=== PATIENT | female | born 1995 | race Two or more races ===

== ENCOUNTER 2020-03-10 08:54 | Outpatient (CLI) | payer SELFPAY | END 2020-03-10 12:46 | disposition home or self-care (01) | LOC: LDRP 08:54 → UNDOADMOB 08:54 → OB 08:54 → UNDODISOB 12:46 → OB 12:46 → EDSTATUS 03-24 08:07 | PROVIDERS: ATTEND Specialist | DX: O47.02 False labor before 37 completed weeks of gestation, second trimester (principal); Z3A.20 20 weeks gestation of pregnancy | CPT/HCPCS: 76805; G0378 ==

== ENCOUNTER 2020-06-30 17:09 | Observation (INO) | payer MEDICAID ==
[~2020-06-30] VITALS: Ht 152.4 cm; Wt 80.7 kg
== END 2020-06-30 18:05 | disposition home or self-care (01) ==
LOC: LDRP 17:09 → UNDOADMOB 17:09 → UNDODISOB 18:05
PROVIDERS: ADMIT Obstetrics & Gynecology; ATTEND Obstetrics & Gynecology
DX: O36.63X0 Maternal care for excessive fetal growth, third trimester, not applicable or unspecified (principal); Z3A.36 36 weeks gestation of pregnancy
CPT/HCPCS: 59025; 81002; G0378

== ENCOUNTER 2020-07-05 13:57 | Observation (INO) | payer MEDICAID ==
[2020-07-05] MEDS ORDERED: PREN-96 PO (16:14)
== END 2020-07-05 16:40 | disposition home or self-care (01) ==
LOC: OB 13:57 → LDRP 15:43
PROVIDERS: ADMIT Obstetrics & Gynecology; ATTEND Obstetrics & Gynecology
DX: O36.63X0 Maternal care for excessive fetal growth, third trimester, not applicable or unspecified (principal); O62.9 Abnormality of forces of labor, unspecified; Z3A.37 37 weeks gestation of pregnancy
CPT/HCPCS: 59025; 76805; 76818; 81002; G0378

== ENCOUNTER 2020-07-15 08:30 | Observation (INO) | payer MEDICAID ==
[~2020-07-15 08:30] MED LIST: PREN-96 PO
[2020-07-15 09:24] LABS: Urine Bacteria MANY /hpf (None Seen); Urine Blood Negative /uL (Negative); Urine Hyaline Cast FEW /lpf (0 - 2); Urine Mucus FEW (None Seen); Urine Specific Gravity 1.018 (1.001-1.035); Urine WBC 7 /hpf (0 - 5)
[2020-07-15 09:53] LABS: Protein, Urine 45.1 mg/dL (0.0-11.9)
[2020-07-15 09:59] LABS: 24 Hr. Total Protein, Urine 1307.9 mg/24 Hr (<149.1); Protein, Urine 45.1 mg/dL (0.0-11.9)
== END 2020-07-15 10:25 | disposition home or self-care (01) ==
LOC: LDRP 08:30
PROVIDERS: ADMIT Specialist; ATTEND Specialist
DX: O36.63X0 Maternal care for excessive fetal growth, third trimester, not applicable or unspecified (principal); O62.9 Abnormality of forces of labor, unspecified; Z3A.38 38 weeks gestation of pregnancy
CPT/HCPCS: 59025; 76818; 81001; 81002; 82570; 84156; G0378

== ENCOUNTER 2020-07-18 11:20 | Observation (INO) | payer MEDICAID | END 2020-07-18 13:30 | disposition home or self-care (01) | LOC: LDRP 11:20 | PROVIDERS: ADMIT Specialist; ATTEND Specialist | DX: O36.63X0 Maternal care for excessive fetal growth, third trimester, not applicable or unspecified (principal); Z3A.38 38 weeks gestation of pregnancy | CPT/HCPCS: 59025; 76818; 81002; G0378 ==

== ENCOUNTER 2020-07-21 10:51 | Observation (INO) | payer MEDICAID ==
[~2020-07-21] VITALS: Ht 152 cm; Wt 82.1 kg
--- NOTE | 2020-07-21 17:33 | NUR ---
Notified patient of positive COVID test that was done today. Discussed all signs and symptoms to look for and report. Discussed protocol of hospital visits and importance of calling in before coming in to prepare room and transport with patient. Patient verbalizes understanding and states she will contact her primary care provider as soon as possible and quarantine fro 14 days.
== END 2020-07-21 14:00 | disposition home or self-care (01) ==
LOC: LDRP 10:51
PROVIDERS: ADMIT Specialist; ATTEND Specialist
DX: O36.63X0 Maternal care for excessive fetal growth, third trimester, not applicable or unspecified (principal); Z20.828 Contact with and (suspected) exposure to other viral communicable diseases; O69.81X0 Labor and delivery complicated by cord around neck, without compression, not applicable or unspecified; Z3A.39 39 weeks gestation of pregnancy
CPT/HCPCS: 59025; 76818; 81002; G0378; U0003

== ENCOUNTER 2020-07-24 14:01 | Inpatient (IN) | payer MEDICAID ==
[~2020-07-24] VITALS: Ht 162.6 cm; Wt 83.5 kg
[2020-07-24] MEDS ORDERED: BUTORPHANOL TARTRATE 2 MG/1 ML VIAL IM ONE (16:15)
[2020-07-24] MEDS ORDERED: PROMETHAZINE HCL 25 MG/ML 1ML IV ONE (16:15)
[2020-07-24] MEDS ORDERED: LACTATED RINGER'S 1,000 ML IV ONE ×2 (16:15→18:45)
[2020-07-24] MEDS ORDERED: LACT. RINGERS/OXYTOCIN 20UNITS 1,000 ML IV ONE (17:45)
[2020-07-24] MEDS ORDERED: LACT. RINGERS/OXYTOCIN 20UNITS 1,000 ML IV SCH (17:45)
[2020-07-24] MEDS ORDERED: hydrALAZINE HCL 20 MG/ML VL IV ONE ×2 (17:45→18:00)
[2020-07-24] MEDS ORDERED: LACTATED RINGER'S 1,000 ML IV SCH (17:45)
[2020-07-24 18:02] LABS: Basophils # (auto) 0 10 ^3/uL (0-0.2); Basophils % (auto) 0.3 % (0.0-2.0); Eosinophils # (auto) 0 10 ^3/uL (0-0.8); Hematocrit 39.2 % (36.0-46.0); Hemoglobin 13.3 g/dL (12.2-16.2); Lymphocytes # (auto) 1.2 10 ^3/uL (0.4-5.4); Mean Corpuscular Hemoglobin 31.4 pg (28.0-32.0); Mean Corpuscular Volume 92.2 fL (80.0-100.0); Monocytes # (auto) 0.3 10 ^3/uL (0-1.3); Monocytes % (auto) 3.7 % (0.0-12.0); Neutrophils # (auto) 7.2 10 ^3/uL (1.6-8.6); Platelet Count (auto) 188 10^3/uL (140-450); Red Blood Cells 4.25 10^6/uL (4.0-5.20); Red Cell Distribution Width 13.9 % (11.8-14.3); White Blood Cell 8.8 10^3/uL (4.4-10.8)
[2020-07-24 18:15] LABS: INR 0.9 (0.9-1.15); Partial Thromboplastin Time 38.2 sec (23.0-31.2)
[2020-07-24 18:18] LABS: Albumin 2.4 g/dL (3.4-5.0); Calcium 8.2 mg/dL (8.5-10.1); Potassium 3.8 mmol/L (3.5-5.1)
[2020-07-24 18:22] LABS: BUN/Creatinine Ratio 15.1; Bilirubin, Total 0.3 mg/dL (0.2-1.0)
[2020-07-24 18:28] LABS: Alcohol, Urine < 3.0 mg/dL (0-10); Amphetamine Screen, Urine NEGATIVE (NEGATIVE); Barbiturate Scree,Urine NEGATIVE (NEGATIVE); Benzodiazephine Screen, Urine NEGATIVE (NEGATIVE); Cannabinoid Screen, Urine NEGATIVE (NEGATIVE); Cocaine Screen, Urine NEGATIVE (NEGATIVE); Opiate Scree,Urine NEGATIVE (NEGATIVE); Phencyclidine Screen, Urine NEGATIVE (NEGATIVE)
[2020-07-24 18:37] LABS: Urine Bacteria MOD /hpf (None Seen); Urine Blood 2+ /uL (Negative); Urine Mucus FEW (None Seen); Urine WBC 5 /hpf (0 - 5)
[2020-07-24] MEDS ORDERED: NALOXONE HCL 0.4 MG/ML VIAL IV ONE (18:45)
[2020-07-24] MEDS ORDERED: ePHEDrine SULFATE 50 MG/ML AMP IV ONE (18:45)
[2020-07-24] MEDS ORDERED: LACTATED RINGER'S 500 ML IV ONE (18:45)
[2020-07-24] MEDS ORDERED: ROPIVACAINE HCL 200 ML EPI SCH ×3 (18:45→20:45)
[2020-07-24] MEDS ORDERED: LIDOCAINE HCL 2 %PF INJ 10ML AMP IJ ONE (18:48)
[2020-07-24] MEDS ORDERED: hydrALAZINE HCL 20 MG/ML VL IV PRN (20:30)
[2020-07-24] MEDS: DERMOPLAST 60ML BOTTLE TOP PRN (22:36)
[2020-07-24] MEDS: WITCH HAZEL-GLYCERIN PAD TOP PRN (22:36)
[2020-07-24] MEDS: PHISODERM TOP SOLN 240ML BTL TOP PRN (22:37)
[2020-07-25] MEDS ORDERED: ePHEDrine SULFATE 50 MG/ML AMP IV ONE (01:00)
[2020-07-25] MEDS ORDERED: LIDOCAINE HCL 2 %PF INJ 10ML AMP IJ ONE ×2 (01:00→01:07)
--- NOTE | 2020-07-25 05:15 | NUR ---
Ambulation: Patient OOB with standby assistance by RN. Patient ambulated to bathroom with steady gait. Patient able to void 400ml without difficulty. [facility] teaching provided with returned demonstration by patient. Clean gown provided and bed linen changed. Patient ambulated back to bed with steady gait and no distress noted.
--- NOTE | 2020-07-25 06:10 | NUR ---
RECEIVED REPORT, ASSUMED CARE FROM NIRMALA ROJAS.
[2020-07-25] MEDS ORDERED: IBUPROFEN 600 MG TAB PO PRN (06:15)
[2020-07-25] MEDS ORDERED: ACETAMINOPHEN 325 MG TAB PO PRN (06:15)
[2020-07-25 08:00] VITALS: BP 125/75
--- NOTE | 2020-07-25 08:31 | NUR ---
ASSESSMENT COMPLETED. PT HAS A TEMPERATURE OF 100.5. DR FERRER NOTIFIED. ORDER RECEIVED TO CONSULT HOSPITALIST. PAGE TO HOSPITALIST MADE.
--- NOTE | 2020-07-25 08:45 | NUR ---
PAGE PLACED TO HOSPITALIST REGARDING CONSULT
--- NOTE | 2020-07-25 10:17 | NUR ---
THIS RN SPOKE WITH DR SPENCE, ORDER FOR CHEST EX RAY RECEIVED. ORDERS ENTERED FOR PORTABLE CHEST EXRAY
[2020-07-25 11:00] VITALS: BP_SYST 129; BP_DIAS 79; BP_DIAS 83
[2020-07-25] MEDS: PHISODERM TOP SOLN 240ML BTL TOP PRN (11:34)
[2020-07-25] MEDS: WITCH HAZEL-GLYCERIN PAD TOP PRN (11:34)
[2020-07-25] MEDS: DERMOPLAST 60ML BOTTLE TOP PRN (11:34)
--- NOTE | 2020-07-25 11:51 | NUR ---
S/W DR SPENCE CHEST XRAY REVEALS MILD INTERSTITIAL INFILTRATES, PT SAO2 IS 94%, STATES LONG SHE HER SAO2 IS WITHIN NORMAL LIMITS WE WILL CONTINUE TO OBSERVE. PT TEMP 99.2
[2020-07-25 15:00] VITALS: BP 105/45
[2020-07-25 18:56] VITALS: BP 120/68
[2020-07-25 23:29] VITALS: BP 136/80
[2020-07-26 03:23] VITALS: BP 124/80
[2020-07-26 05:09] LABS: RPR Non Reactive (Non Reactive)
[2020-07-26 07:13] VITALS: BP 135/90
--- NOTE | 2020-07-26 07:30 | NUR ---
Assessment and cert verification with [facility] special machine phone ID #[id number]
[2020-07-26 08:06] LABS: Rubella Antibodies, IgG 3.26 index (Immune >0.99)
[2020-07-26 11:20] VITALS: BP 142/88
--- NOTE | 2020-07-26 11:45 | NUR ---
Discharge: Discharge instructions given as ordered via blue phone #[phone]. Pt encouraged to follow up with [employer] as instructed. All questions and concerns addressed. Patient verbalized understanding. Medication reconciliation completed and copy given to patient. All required/requested vaccines given and copies of vaccinations given to patient. Patient encouraged to prepare to depart unit.
--- NOTE | 2020-07-26 12:48 | NUR ---
Discharge: Patient taken to vehicle ambulatory with all personal belongings, accompanied by staff and family member. No distress noted at time of departure, no adverse changes in status since initial assessment.
== END 2020-07-26 12:48 | disposition home or self-care (01) | DRG 560 ==
LOC: LDRP 14:01 → OBSVTOIN 17:40 → LDRP 17:47
PROVIDERS: ADMIT Obstetrics & Gynecology; ATTEND Obstetrics & Gynecology
PROC: 10E0XZZ Delivery of Products of Conception, External Approach (ICD-10-PCS; principal; 2020-07-25)
PROC: 0HQ9XZZ Repair Perineum Skin, External Approach (ICD-10-PCS; 2020-07-25)
PROC: 3E0R3BZ Introduction of Anesthetic Agent into Spinal Canal, Percutaneous Approach (ICD-10-PCS; 2020-07-25)
PROC: 00HU33Z Insertion of Infusion Device into Spinal Canal, Percutaneous Approach (ICD-10-PCS; 2020-07-25)
PROC: 10907ZC Drainage of Amniotic Fluid, Therapeutic from Products of Conception, Via Natural or Artificial Opening (ICD-10-PCS; 2020-07-25)
DX: O13.4 Gestational [pregnancy-induced] hypertension without significant proteinuria, complicating childbirth (principal); O99.214 Obesity complicating childbirth; E66.9 Obesity, unspecified; O99.284 Endocrine, nutritional and metabolic diseases complicating childbirth; E88.09 Other disorders of plasma-protein metabolism, not elsewhere classified; O98.52 Other viral diseases complicating childbirth; U07.1 COVID-19; Z37.0 Single live birth; Z3A.39 39 weeks gestation of pregnancy; O77.0 Labor and delivery complicated by meconium in amniotic fluid; O70.0 First degree perineal laceration during delivery; O69.1XX0 Labor and delivery complicated by cord around neck, with compression, not applicable or unspecified
CPT/HCPCS: 36415; 59025; 59409; 62282; 71045; 80053; 80307; 81001; 81002; 84550; 85025; 85610; 85730; 86592; 86762; 86850; 86900; 86901; 87340; 94760; 96360; 96361; 96365; 96366; 96375; G0378; J2590